=== PATIENT | female | born 1980 | race American Indian/Alaskan Native ===

== ENCOUNTER 2022-01-03 00:08 | Emergency (ER) | payer SELFPAY ==
[2022-01-03] MEDS ORDERED: IPRATROPIUM 0.02% NEBU 2.5 ML IH ONE ×2 (02:09→04:43)
[2022-01-03] MEDS ORDERED: ALBUTEROL 2.5 MG/3 ML NEBU IH ONE ×2 (02:09→04:43)
[2022-01-03] MEDS ORDERED: MAGNESIUM SULFATE 2 GM/50 ML BAG IV ONE (02:10)
--- NOTE | 2022-01-03 02:16 | Emergency Department Report ---
HPI - General Chief Complaint: Adult Asthma Time Seen by Provider: 01/03/22 02:04 - HPI HPI: Room 20 The patient is a 41-year-old female present with a chief complaint of shortness of breath. Patient has a history of asthma states for the past 2 days she has had wheezing consistent with her asthma. Patient states she is also had a cough for the past 2 days has been nonproductive. Patient states she is use her inhaler but has not helped. Patient admits to a fever of 101 F. Patient states she has been vaccinated against COVID receiving 2 Pfizer doses last year. EMS was called and administered albuterol 7.5 mg and Decadron 10 mg IV the julia ent states she felt some improvement but still feels tight. ED Past Medical Hx - Past Medical History Previous Medical History?: Yes Hx Asthma: Yes - Surgical History Past Surgical History?: No - Family History Family history: no significant - Social History Smoking Status: Current Every Day Smoker (1/3 pack/day) Substance Use Type: None (Denies illicit drug use), Alcohol (Occasional) - Medications Home Medications: Home Medications Medication Instructions Recorded Confirmed Last Taken Type Albuterol Mdi (or & Nicu Only) 2 puff IH QID PRN #8.5 gram 01/03/22 Unknown Rx [ProAir HFA Inhaler] Albuterol Sulfate [Albuterol 0.63% 0.63 mg IH TID PRN #75 ml 01/03/22 Unknown Rx NEBS] Benzonatate [Tessalon Perles] 100 mg PO Q8HR #30 cap 01/03/22 Unknown Rx Prednisone [predniSONE 10 mg 10 mg PO .TAPER #1 01/03/22 Unknown Rx (6-Day Pack, 21 Tabs)] levoFLOXacin [Levaquin TAB] 500 mg PO QDAY #10 tablet 01/03/22 Unknown Rx ED Review of Systems ROS: Stated complaint: ASTHMA ATTACK Other details as noted in HPI Constitutional: fever Eyes: denies: eye pain ENT: denies: throat pain Respiratory: cough, shortness of breath, wheezing Cardiovascular: denies: chest pain Endocrine: no symptoms reported Gastrointestinal: denies: abdominal pain Genitourinary: denies: dysuria Musculoskeletal: denies: back pain Neurological: denies: headache Physical Exam - Physical Exam Vital Signs: Vital Signs 01/03/22 00:09 Temperature 98.2 F Pulse Rate 92 H Respiratory 18 Rate Blood Pressure 126/70 O2 Sat by Pulse 99 Oximetry Physical Exam: GENERAL: The patient is well-developed well-nourished female lying on stretcher not appearing to be in acute distress. [] HEENT: Normocephalic. Atraumatic. Extraocular motions are intact. Patient has moist mucous membranes. NECK: Supple. Trachea midline CHEST/LUNGS: Diffuse wheezing HEART/CARDIOVASCULAR: Regular. There is no tachycardia. There is no gallop rub or murmur. ABDOMEN: Abdomen is soft, nontender. Patient has normal bowel sounds. There is no abdominal distention. SKIN: There is no rash. There is no edema. There is no diaphoresis. NEURO: The patient is awake, alert, and oriented. The patient is cooperative. The patient has no focal neurologic deficits. The patient has normal speech. GCS 15 MUSCULOSKELETAL: There is no evidence of acute injury. ED Course Vital Signs 01/03/22 00:09 Temperature 98.2 F Pulse Rate 92 H Respiratory 18 Rate Blood Pressure 126/70 O2 Sat by Pulse 99 Oximetry - Reevaluation(s) Reevaluation #1: 01/03/22 05:43 Patient states he felt improved after neb. Has occasional cough ED Medical Decision Making - Lab Data Result diagrams: 01/03/22 04:45 01/03/22 03:45 Laboratory Tests 01/03/22 01/03/22 03:45 04:45 WBC 9.8 RBC 4.06 Hgb 10.6 Hct 33.6 MCV 83 MCH 26 L MCHC 32 RDW 17.5 H Plt Count 508 H Seg Neutrophils % End Lathe Operator Sodium 138 Potassium 4.4 Chloride 105.2 Carbon Dioxide 17 L Anion Gap 20 BUN 8 Creatinine 0.6 Estimated GFR > 60 BUN/Creatinine Ratio 13 Glucose 171 H Calcium 9.0 - Radiology Data Radiology results: report reviewed (Chest x-ray), image reviewed (Chest x-ray) interpreted by me: Chest x-ray-right lower lobe atelectasis versus infiltrate. No pneumothorax [facility] [address] [place] [address] XRay Report Signed Patient: CARLTON RIZZO MR#: [id number] : 1980 Acct:[id number] Age/Sex: 41 / F ADM Date: 01/03/22 Loc: ED Attending Dr: Ordering Physician: SAMEER OLGUIN MD Date of Service: 01/03/22 Procedure(s): XR chest 1V ap Accession Number(s): [id number] cc: SAMEER OLGUIN MD Fluoro Time In Minutes: CHEST 1 VIEW INDICATION / CLINICAL INFORMATION: Cough, wheezing. COMPARISON: None available. FINDINGS: SUPPORT DEVICES: None. HEART / MEDIASTINUM: Heart size is within normal limits. Mediastinal contour demonstrates no significant abnormality. LUNGS / PLEURA: Minimal nonconsolidating opacities overlie the mid right hemidiaphragm. Lungs otherwise are clear. BONES: No significant osseous abnormality. ADDITIONAL FINDINGS: No significant additional findings. IMPRESSION: 1. Minimal opacities overlie the mid right hemidiaphragm. Atelectasis and/or infection could centered. Signer Name: Ky Brownlee II, MD Signed: 01/03/2022 3:18 AM Workstation Name: [email or web address] Transcribed By: DARNELL Dictated By: KY BROWNLEE II, MD Electronically Authenticated By: KY BROWNLEE II, MD Signed Date/Time: 01/03/22317 DD/ 6 TD/TT: - Differential Diagnosis Asthma exacerbation, bronchitis, pneumonia, reactive airway disease Critical care attestation.: If time is entered above; I have spent that time in minutes in the direct care of this critically ill patient, excluding procedure time. ED Disposition Clinical Impression: Acute asthma exacerbation, Cough Disposition: 01 HOME / SELF CARE / HOMELESS Is pt being admited?: No Does the pt Need Aspirin: No Condition: Stable Instructions: Asthma, Adult Additional Instructions: Return to the emergency department should you develop worsening symptoms, inability to tolerate food or liquids, high fever or any other concerns Prescriptions: Albuterol Sulfate [Albuterol 0.63% NEBS] 0.63 mg IH TID PRN #75 ml PRN Reason: Wheezing levoFLOXacin [Levaquin TAB] 500 mg PO QDAY #10 tablet Prednisone [predniSONE 10 mg (6-Day Pack, 21 Tabs)] 10 mg PO .TAPER #1 Albuterol Mdi (or & Nicu Only) [ProAir HFA Inhaler] 2 puff IH QID PRN #8.5 gram PRN Reason: Shortness Of Breath Benzonatate [Tessalon Perles] 100 mg PO Q8HR #30 cap Referrals: MICHELL DONNELLY MD [Staff Physician] - 3-5 Days Time of Disposition: 05:43
--- NOTE | 2022-01-03 03:22 | XRay Report ---
CHEST 1 VIEW INDICATION / CLINICAL INFORMATION: Cough, wheezing. COMPARISON: None available. FINDINGS: SUPPORT DEVICES: None. HEART / MEDIASTINUM: Heart size is within normal limits. Mediastinal contour demonstrates no signific ant abnormality. LUNGS / PLEURA: Minimal nonconsolidating opacities overlie the mid right hemidiaphragm. Lungs otherwi se are clear. BONES: No significant osseous abnormality. ADDITIONAL FINDINGS: No significant additional findings. IMPRESSION: 1. Minimal opacities overlie the mid right hemidiaphragm. Atelectasis and/or infection could centered . Signer Name: Tejinder Savage II, MD Signed: 01/03/2022 3:18 AM Workstation Name: [id number]
[2022-01-03 04:15] LABS: Blood Urea Nitrogen 8 mg/dL (7-17); Hemolysis Index 17
[2022-01-03 04:30] LABS: BUN/Creatinine Ratio 13
[2022-01-03 05:01] LABS: Hematocrit 33.6 % (30.3-42.9); Hemoglobin 10.6 gm/dl (10.1-14.3); Mean Corpuscular HGB Conc 32 % (30-34); Mean Corpuscular Volume 83 fl (79-97); Platelet Count 508 K/mm3 (140-440); Red Blood Count 4.06 M/mm3 (3.65-5.03); Red Cell Distribution Width 17.5 % (13.2-15.2)
[2022-01-03 06:34] LABS: Anisocytosis 1+; Basophils % (Manual) 0 % (0.0-1.8); Eosinophils % (Manual) 0 % (0.0-4.3); Monocytes % (Manual) 0 % (0.0-7.3); Platelet Estimate Consistent w Auto; Total Cells Counted 100
[2022-01-03 06:57] VITALS: BP 141/90
== END 2022-01-03 06:20 | disposition home or self-care (01) ==
LOC: ED 00:08
DX: J45.901 Unspecified asthma with (acute) exacerbation (principal); F17.210 Nicotine dependence, cigarettes, uncomplicated; Z72.89 Other problems related to lifestyle; Z79.899 Other long term (current) drug therapy; Z88.6 Allergy status to analgesic agent
CPT/HCPCS: 36415; 71045; 80048; 85007; 85025; 87040; 94640; 96365; 99284; J3475; 94644